=== PATIENT | male | born 1990 | race Caucasian/White ===

== ENCOUNTER 2020-03-30 08:39 | Outpatient (CLI) | payer OTHER, SELFPAY ==
--- NOTE | 2020-03-30 | XR_ITS ---
WS: [id number] PROCEDURE: XR chest 2V* [id number] CLINICAL INFORMATION: ACUTE BRONCHITIS COMPARISON: None. FINDINGS: Heart: Normal cardiac silhouette. Lungs: Lungs are clear. No consolidation or pleural fluid. No acute pulmonary infiltrates. Bones: Normal visualized bony structures. XR/XR chest 2V* [id number] IMPRESSION: Normal chest
== END 2020-03-30 08:40 | disposition home or self-care (01) ==
PROVIDERS: PCP Physician Assistant Medical; Visit Provider Nurse Practitioner Family
DX: J20.9 Acute bronchitis, unspecified (principal)
CPT/HCPCS: 71046

== ENCOUNTER → 2020-04-27 10:10 | Outpatient (BNVA) | payer OTHER, SELFPAY | PROVIDERS: PCP Physician Assistant Medical; Visit Provider Specialist | DX: Z20.828 Contact with and (suspected) exposure to other viral communicable diseases (principal) | CPT/HCPCS: 87635 ==

== ENCOUNTER 2020-05-01 08:59 | Outpatient (CLI) | payer OTHER, SELFPAY ==
--- NOTE | 2020-05-01 13:02 | PFTS_ITS ---
Date of Study:05/01/20 Date of Dictation: MECHANICS: Forced vital capacity (FVC) is increased. Forced expiratory volume in one second (FEV1) is increased. FEV1/FVC is normal. FLOW VOLUME LOOP: Normal. LUNG VOLUMES: Not measured DIFFUSING CAPACITY FOR CARBON MONOXIDE: Not measured INTERPRETATION: The pulmonary function tests are normal. The forced vital capacity and FEV1 are higher than normal range. Lung volumes and DLCO were not measured. MTDD
== END 2020-05-01 09:00 | disposition home or self-care (01) ==
LOC: RT 09:01
PROVIDERS: PCP Physician Assistant Medical; Visit Provider Specialist
DX: J37.0 Chronic laryngitis (principal); R05 Cough
CPT/HCPCS: 94010

== ENCOUNTER → 2021-05-21 09:21 | Outpatient (BNVA) | payer OTHER, SELFPAY | PROVIDERS: PCP Physician Assistant Medical; Visit Provider Nurse Practitioner Family | DX: R53.83 Other fatigue (principal); I10 Essential (primary) hypertension | CPT/HCPCS: 80053; 84443 ==

== ENCOUNTER 2021-06-26 20:00 | Outpatient (CLI) | payer OTHER, SELFPAY | END 2021-06-26 20:01 | disposition home or self-care (01) | LOC: SLEEP 06-27 06:58 | PROVIDERS: PCP Nurse Practitioner Family; Visit Provider Nurse Practitioner Family | DX: G47.30 Sleep apnea, unspecified (principal) | CPT/HCPCS: 95810 ==

== ENCOUNTER → 2021-10-22 09:41 | Outpatient (BNVA) | payer OTHER, SELFPAY | PROVIDERS: PCP Nurse Practitioner Family; Visit Provider Nurse Practitioner Family | DX: I10 Essential (primary) hypertension (principal); F41.9 Anxiety disorder, unspecified | CPT/HCPCS: 80053; 80061 ==

== ENCOUNTER → 2022-01-21 15:57 | Outpatient (BNVA) | payer OTHER, SELFPAY | PROVIDERS: PCP Nurse Practitioner Family; Visit Provider Nurse Practitioner Family | DX: L24.A9 Irritant contact dermatitis due friction or contact with other specified body fluids (principal); L03.90 Cellulitis, unspecified | CPT/HCPCS: 87070; 87075; 87205 ==

== ENCOUNTER → 2022-02-27 10:28 | Outpatient (BNVA) | payer OTHER, SELFPAY | PROVIDERS: PCP Nurse Practitioner Family; Visit Provider Nurse Practitioner Family | DX: J02.0 Streptococcal pharyngitis (principal) | CPT/HCPCS: 87880 ==

== ENCOUNTER → 2022-11-28 10:15 | Outpatient (BNVA) | payer OTHER, SELFPAY | PROVIDERS: PCP Nurse Practitioner Family; Visit Provider Nurse Practitioner Family | DX: I10 Essential (primary) hypertension (principal); F41.9 Anxiety disorder, unspecified | CPT/HCPCS: 80053; 80061 ==

== ENCOUNTER 2022-12-23 18:09 | Emergency (ER) | payer OTHER, SELFPAY ==
[2022-12-23 18:14] VITALS: BP 154/95; PULSE 115; RESP 19; TEMP 36.6; O2SAT 97; BMI 34.9
--- NOTE | 2022-12-23 18:19 | W.ED.BACK ---
HPI - Back Pain/Injury General: Chief Complaint: Back Pain/Injury Stated Complaint: Back Pain Time Seen by Provider: 12/23/22 18:19 History of Present Illness: 42-year-old male patient comes in today with complaints of low back pain radiating down the right leg. Patient reports that he fell about 4 weeks ago in the garage and did not feel like he injured himself. Over the last week though patient has had increased pain in his low back radiating down his right leg. Patient saw a chiropractor last week with some improvement on Friday but then over the weekend patient was not able to get up out of bed due to increased pain and discomfort. Patient seeing a massage therapist on Friday with minimal to no relief, and then was seen in the emergency room at [place] and started on steroids and a muscle relaxer. Patient states that today he was able to get back to his chiropractor which seem to help with his mobility some and when he seen his chiropractor this afternoon they told him that he needed to go to the ER for further evaluation. Patient appears nontoxic. Patient appears in no acute distress. Patient denies any loss of bowel or bladder control. Patient reports no fevers. Review of Systems General: Reports: 10 or more systems reviewed and unremarkable except in HPI and below Musc: Reports: back pain PFSH ED PFSH: Medical History HTN (hypertension) Family History Other Cancer Social History Smoking and tobacco status: never smoked Second hand smoke exposure: Yes Smoking risk assessment/counseling performed?: No Alcohol intake: current Alcohol intake frequency: holidays/special occasions only Counseling given: No Substance/Drug Use: never Desire information about substance/drug rehabilitation?: No Counseling given: No Adopted: No Lives independently: Yes Household members: spouse Marital status: Current occupational status: employed Current occupational exposures/hazards: No Do you think of yourself as: Straight/Heterosexual Current gender identity: Male Physical Exam Const: COMMON NORMALS: alert HENMT: COMMON NORMALS: normocephalic HEAD & SCALP: normocephalic Neck/C-Spine: COMMON NORMALS: full ROM CERVICAL SPINE: No Cervical spine tenderness Resp: COMMON NORMALS: normal respiratory effort Cardio: COMMON NORMALS: regular rate RATE: regular rate GI: COMMON NORMALS: non-tender Back/Pelvis: THORACIC SPINE/UPPER BACK: No thoracic spinal tenderness LUMBAR SPINE/LOWER BACK: No lumbar spinal tenderness, Yes paraspinal muscle tenderness Lumbar paraspinal muscle tenderness: right and Yes straight leg raise positive right Straight leg raise positive details right: at 50 degrees SACROILIAC JOINTS: Yes SI joint(s) abnormal SI joint details: tender to palpation (right) Neuro: SENSORIUM/ORIENTATION: Yes alert Skin: COMMON NORMALS: turgor normal GENERAL SKIN EXAM: turgor normal Course Vital Signs: Vital signs: Vital Signs Temperature 97.9 F 12/23/22 18:14 Pulse Rate 66 12/23/22 18:38 Respiratory Rate 16 12/23/22 18:38 Blood Pressure 164/84 12/23/22 18:38 Pulse Oximetry 98 12/23/22 18:38 Oxygen Delivery Me thod Room Air 12/23/22 18:38 MDM - Back Pain/Injury Medical Decision Making 32-year-old male patient comes in today with injury to the low back. Patient reports injury about 4 weeks ago. Since then patient has had increasing pain and discomfort to the right lower back rating down his leg. Vital signs are normal except for some elevation in blood pressure and pulse. Differential diagnosis includes but not limited to intervertebral disc disease, facet arthropathy, lumbar compression fracture, spondylolisthesis, lumbar radiculopathy. CT of the lumbar spine showed no acute findings. Reviewed exam with patient with recommendations for treatment and follow-up. Recommended gentle stretching and range of motion exercises. Recommend Tylenol and ibuprofen for pain. Recommend follow-up with primary care for further instructions. Patient reported understanding of care plan and need for follow-up or return to the ER. Labs Radiology Impressions Lumbar Spine CT 12/23/22 18:25 IMPRESSION: No acute findings. All radiology interpretation(s) finalized by discharge Discharge Plan Discharge Patient Disposition: Home Clinical Impression: Low back pain Qualifiers: Chronicity: acute Back pain laterality: right Sciatica presence: with sciatica Sciatica laterality: sciatica of right side Qualified Code(s): M54.41 - Lumbago with sciatica, right side Condition: Stable Prescriptions: No Action fluoxetine [Prozac] 20 mg capsule 20 mg PO DAILY Qty: 90 1RF amlodipine 10 mg tablet 10 mg PO DAILY Qty: 90 1RF Discharge Orders: Discharge ED (Routine); Ordered 12/23/22 Ordered By: Elieser Flores Referrals: Lani Browning FNP [Primary Care Provider] - Discharge Diet: Usual diet Discharge Activity: Increase activity as tolerated Patient Instructions: Acute Low Back Pain (ED) Activity Restrictions/Additional Instructions: Try to maintain activity is much as possible. Gentle stretching and range of motion exercises. Use acetaminophen and/or ibuprofen as needed for pain. Use mentholated muscle rubs for further pain relief. Drink plenty of water with medications. Follow-up with primary care for further instructions. Return to ED for new concerns or worsening symptoms such as fevers greater than 100.4, or loss of bowel or bladder control. Coding Level of Care Code ED Advance Scout for Ofelia Verma
--- NOTE | 2022-12-23 18:25 | CTR_ITS ---
PROCEDURE INFORMATION: Exam: CT Lumbar Spine Without Contrast Exam date and time: 12/23/2022 6:38 PM Age: 32 years old Clinical indication: Pain and injury or trauma; Fall; Blunt trauma (contusions or hematomas); Low back pain; Additional info: Fall injury, lumbar radiculopathy TECHNIQUE: Imaging protocol: Computed tomography of the lumbar spine without contrast. Radiation optimization: All CT scans at this facility use at least one of these dose optimization techniques: automated exposure control; mA and/or kV adjustment per patient size (includes targeted exams where dose is matched to clinical indication); or iterative reconstruction. REPORTING DATA: Count of CT and Cardiac NM exams in prior 12 months: This patient has received 0 known CTs and 0 known cardiac nuclear medicine studies in the 12 months prior to the current study. COMPARISON: No relevant prior studies available. RADIATION DOSE METRICS: Total DLP (mGy-cm): 920 FINDINGS: Bones/joints: No acute fracture. Normal alignment. No significant disc bulge or herniation. No severe spinal canal stenosis. No significant neural foraminal narrowing. Soft tissues: Unremarkable. CT/CT lumbar spine wo con* [id number] IMPRESSION: No acute findings.
[2022-12-23 18:38] VITALS: BP 164/84; PULSE 66; RESP 16; O2SAT 98
== END 2022-12-23 19:39 | disposition home or self-care (01) ==
PROVIDERS: Emergency Provider Nurse Practitioner Family; PCP Nurse Practitioner Family
DX: M54.41 Lumbago with sciatica, right side (principal); I10 Essential (primary) hypertension; Z77.22 Contact with and (suspected) exposure to environmental tobacco smoke (acute) (chronic)
CPT/HCPCS: 72131; 99284

== ENCOUNTER 2022-12-27 15:51 | Outpatient (CLI) | payer OTHER, SELFPAY ==
--- NOTE | 2022-12-27 16:00 | XR_ITS ---
WS: [id number] EXAMINATION: XR hip RT 2-3V wo/w pel* [id number] REASON FOR EXAM: M25.551 - Pain in right hip COMPARISON: None available. ORDER DATE: 12/27/2022 4:13 PM TECHNIQUE: Frontal internal/external rotation views of the right hip were obtained. X-RAY FINDINGS: There are no fractures or dislocations. Normal motion with internal/external rotation is present. No degenerative changes. IMPRESSION: 1. No fractures or dislocations of the right hip. 2. Normal motion with internal/external rotation.
--- NOTE | 2022-12-27 16:00 | XR_ITS ---
WS: [id number] EXAMINATION: XR lumbar spine 2-3V* [id number] L-SPINE : 3 views REASON FOR EXAM: M54.50 - Low back pain, unspecified COMPARISON: None available. ORDER DATE: 12/27/2022 4:13 PM FINDINGS: The lumbar vertebral bodies and the disc spaces are normal in width. In the lumbar vertebra, there i s no evidence of compression deformities or spondylolisthesis. IMPRESSION: UNREMARKABLE LUMBAR SPINE STUDY
== END 2022-12-27 15:52 | disposition home or self-care (01) ==
PROVIDERS: PCP Nurse Practitioner Family; Visit Provider Nurse Practitioner Family
DX: M25.551 Pain in right hip (principal); M54.50 Low back pain, unspecified
CPT/HCPCS: 72100; 73502

== ENCOUNTER 2023-01-03 06:36 | Outpatient (CLI) | payer OTHER, SELFPAY ==
--- NOTE | 2023-01-03 07:15 | MR_ITS ---
WS: [id number] MRI LUMBAR SPINE NONCONTRAST TECHNIQUE: Sagittal T1, T2 and STIR imaging. Axial T1 and T2 imaging. CLINICAL INFORMATION: COMPARISON: CT 12/23/22 FINDINGS: Mild lumbar curve. No acute compression. Disc bulging worse at L4-L5 and L5-S1. L1-L2: Normal. L2-L3: Normal. L3-L4: No significant disc bulging. Mild facet arthropathy. Spinal canal and foramen are patent. L4-L5: RIGHT paracentral disc osteophyte protrusion with slight inferior migration of disc material. This impinges the RIGHT subarticular recess and traversing RIGHT L5 nerve root. Mild RIGHT foraminal narrowing. LEFT foramen is patent. Mild facet arthropathy. L5-S1: Tiny shallow central protrusion. Slight contact of the S1 nerve roots. Mild facet arthropathy. Spinal canal and foramen are patent. Visualized pelvic bony structures: Normal. Paravertebral soft tissues: Normal. Adrenal glands are normal. IMPRESSION: 1. Mild lumbar curve. No acute compression. No high-grade central canal stenosis. 2. RIGHT subarticular disc osteophyte protrusion L4-5 impinges the RIGHT subarticular recess and tra versing RIGHT L5 nerve root. Slight inferior migration of disc material into the subarticular recess. Mild RIGHT L4-5 foraminal narrowing. 3. Tiny shallow central protrusion L5-S1 slightly encroaches on the traversing S1 nerve roots. 4. Mild facet arthropathy L4-L5 and L5-S1. 5. A few small disc protrusions in the cervical spine at C5-C6 and C6-C7. 6. Small thoracic spine protrusion at RIGHT T9-T10
== END 2023-01-03 06:37 | disposition home or self-care (01) ==
PROVIDERS: PCP Nurse Practitioner Family; Visit Provider Nurse Practitioner Family
DX: M48.061 Spinal stenosis, lumbar region without neurogenic claudication (principal); M25.78 Osteophyte, vertebrae; M47.817 Spondylosis without myelopathy or radiculopathy, lumbosacral region; M51.26 Other intervertebral disc displacement, lumbar region; M50.222 Other cervical disc displacement at C5-C6 level; M51.24 Other intervertebral disc displacement, thoracic region
CPT/HCPCS: 72148

== ENCOUNTER → 2024-07-01 09:13 | Outpatient (BNVA) | payer OTHER, SELFPAY | PROVIDERS: PCP Nurse Practitioner Family; Visit Provider Nurse Practitioner Family | DX: R51.9 Headache, unspecified (principal); R53.83 Other fatigue; E78.5 Hyperlipidemia, unspecified; I10 Essential (primary) hypertension | CPT/HCPCS: 80053; 80061; 84439; 84443; 85025; 85651; 86140 ==

== ENCOUNTER 2024-07-20 09:08 | Outpatient (CLI) | payer OTHER, SELFPAY ==
--- NOTE | 2024-07-20 09:19 | XRR_ITS ---
PROCEDURE INFORMATION: Exam: XR Cervical Spine Exam date and time: 07/20/2024 9:42 AM Age: 33 years old Clinical indication: Cervicalgia; Neck pain and chronic headaches x 3 mo, no known injury; Additional info: M54.2 - cervicalgia TECHNIQUE: Imaging protocol: Radiologic exam of the cervical spine. Views: 2 or 3 views. COMPARISON: CT head wo con* [id number] 07/20/2024 9:27 AM FINDINGS: Bones/joints: Normal. No acute fracture. Normal alignment. No significant degenerative disc disease appreciated by plain radiographs. Soft tissues: Unremarkable. XR/XR cervical spine 3V* [id number] IMPRESSION: No acute findings.
--- NOTE | 2024-07-20 10:00 | CT_ITS ---
WS: [id number] CT HEAD NONCONTRAST HISTORY: R51.9 - Headache, unspecified TECHNIQUE: Contiguous axial imaging performed through the brain. Bone and soft tissue windows. Sagittal and coronal reformats reviewed. All CT scans at [facility] use at least one of these dose optimization techniques: automated exposure control; mA and/or kV adjustment per patient size (includes targeted exams where dose is matched to clinical indication); or iterative reconstruction. DLP: 1077.70 mGy.cm COMPARISON: None available. No acute intracranial hemorrhage, midline shift or mass effect. No atrophy or prior infarcts or herniation. Perivascular space versus tiny lacunar infarct in the LEFT frontal lobe. Posterior fossa is negative. Ventricles: Normal size with no hydrocephalus. Paranasal sinuses: As visualized are clear. Mastoid air cells: Well pneumatized. Calvarium and scalp: Calvarium is intact. There is a calcified scalp nodule over the LEFT frontal bone measuring 7 mm. Probably related to a sebaceous cyst. CT/CT head wo con* [id number] IMPRESSION: 1. No acute intracranial hemorrhage or edema. 2. Negative posterior fossa.
== END 2024-07-20 09:09 | disposition home or self-care (01) ==
LOC: RAD 09:15
PROVIDERS: PCP Nurse Practitioner Family; Visit Provider Nurse Practitioner Family
DX: M54.2 Cervicalgia (principal); R51.9 Headache, unspecified; Z84.89 Family history of other specified conditions; R93.0 Abnormal findings on diagnostic imaging of skull and head, not elsewhere classified
CPT/HCPCS: 70450; 72040

== ENCOUNTER 2024-08-19 09:01 | Outpatient (CLI) | payer OTHER, SELFPAY ==
--- NOTE | 2024-08-19 09:30 | MR_ITS ---
WS: [id number] MRI HEAD WITHOUT CONTRAST TECHNIQUE: Sagittal T1, T2 axial, T2 axial FLAIR, axial and coronal T1 images, axial susceptibility weighted imaging, axial diffusion weighted images, and coronal T2 images were obtained. CLINICAL INFORMATION: G44.52 - New daily persistent headache (NDPH) COMPARISON: None. FINDINGS: No evidence of restricted diffusion to suggest acute ischemia. Ventricular system and basilar cisterns are patent. No hydrocephalus. Normal posterior fossa. Normal vascular flow voids at the skull base. No extra-axial fluid collections. No evidence of mass or mass effect. Paranasal sinuses and mastoid air cells are well aerated. No hemosiderin on the susceptibility weighted images. Normal optic chiasm and pituitary infundibulum. MR/MR head wo con* [id number] IMPRESSION: 1. No evidence of restricted diffusion to suggest acute ischemia. 2. No suspicious intracranial signal normalities. 3. No hemosiderin on susceptibility-weighted images. 4. No other acute findings.
== END 2024-08-19 09:02 | disposition home or self-care (01) ==
PROVIDERS: PCP Nurse Practitioner Family; Visit Provider Nurse Practitioner Family
DX: G44.52 New daily persistent headache (NDPH) (principal)
CPT/HCPCS: 70551

== ENCOUNTER 2024-09-07 06:34 | Outpatient (CLI) | payer OTHER, SELFPAY ==
--- NOTE | 2024-09-07 07:15 | MR_ITS ---
WS: [id number] MRI CERVICAL SPINE NONCONTRAST HISTORY: M54.2 - Cervicalgia COMPARISON: None available. Technique: Multiplanar, multisequence noncontrast imaging of the cervical spine. Normal cervical alignment with no compression fracture or significant disc space narrowing. Signal within the cervical cord is normal. Visualized posterior fossa is unremarkable. Craniocervical junction, C1 and C2 relationship, odontoid process and soft tissues are normal. C2-C3: LEFT foraminal osteophyte causing mild LEFT foraminal stenosis. C3-C4: LEFT foraminal osteophytes encroaching upon the nerve roots. There is displacement of the nerve roots posteriorly. This is predominantly due to osteophyte disease resulting in moderate LEFT foraminal stenosis. Very mild deformity of the LEFT lateral thecal sac. C4-C5: Minimal central disc protrusion. No stenosis. Mild facet arthritis. C5-C6: Diffuse annular disc bulging with mild osteophytic ridging. RIGHT paracentral disc protrusion. Mild bilateral facet arthritis. Mild central stenosis. C6-C7: Mild annular disc bulging with osteophytic ridging and facet arthritis. Small central disc protrusion effacing ventral CSF. Small bilateral foraminal osteophytes, RIGHT greater than LEFT. Mild central and RIGHT foraminal stenosis. C7-T1: Tiny central disc protrusion. Bilateral foraminal nerve root sleeve diverticula. No stenosis. Increased T2 signal in the RIGHT visualized parotid gland. Small portion of parotid gland included demonstrates mild wall thickening. MR/MR cervical spin wo con* [id number] IMPRESSION: 1. C2-3 and C3-4: LEFT foraminal osteophytes with mild LEFT foraminal stenosis . 2. C5-6: RIGHT paracentral disc protrusion with disc bulging and osteophytic r idging. Mild central stenosis. 3. C6-7: Small central disc protrusion effacing CSF with bilateral foraminal o steophytes, RIGHT greater than LEFT. Mild central and RIGHT foraminal stenosis. 4. Small central disc protrusions at C4-5 and C7-T1. 5. There is mildly increased signal in the RIGHT parotid gland. Only a small p ortion of the parotid gland is included but the signal is more increased than t ypically noted. Consider follow-up neck CT with IV contrast. Only a small porti on of the parotid duct is visualized but the wall appears thickened and promine nt.
== END 2024-09-07 06:35 | disposition home or self-care (01) ==
PROVIDERS: PCP Nurse Practitioner Family; Visit Provider Nurse Practitioner Family
DX: M50.322 Other cervical disc degeneration at C5-C6 level (principal); M48.02 Spinal stenosis, cervical region; M50.221 Other cervical disc displacement at C4-C5 level; M50.222 Other cervical disc displacement at C5-C6 level; M50.223 Other cervical disc displacement at C6-C7 level; M50.23 Other cervical disc displacement, cervicothoracic region; M25.78 Osteophyte, vertebrae
CPT/HCPCS: 72141

== ENCOUNTER 2024-10-18 12:24 | Outpatient (CLI) | payer OTHER, SELFPAY ==
--- NOTE | 2024-10-18 12:30 | CT_ITS ---
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 Sagittal and coronal reformats are also submitted. All CT scans at [facility] use at least one of these dose optimization techniques: automated exposure control; mA and/or kV adjustment per patient size (includes targeted exams where dose is matched to clinical indication); or iterative reconstruction. CONTRAST: CONTRAST: Omnipaque 350; 100 mL IV. DLP: 249.83 mGy.cm COMPARISON: MRI cervical spine 09/07/2024 The parotid glands are symmetric in appearance by CT imaging. The RIGHT parotid may be slightly greater in size than the LEFT but this is normal variation. No stones within the parotid ducts. Submandibular glands and thyroid gland are also normal. No parotid gland mass. Nasopharynx, oropharynx, hypopharynx and larynx are unremarkable. No soft tissue masses or abnormal enhancement. Torus tubarius and fossa of Rosenmuller and parapharyngeal fat are normal. No significant lymphadenopathy is identified. Benign level 2 lymph nodes. Thyroid gland and salivary glands are normally enhancing with no masses. No osseous abnormalities. Visualized portions of the skull base demonstrate no abnormalities. Orbits and globes are within normal limits. No soft tissue masses. Visualized paranasal sinuses and mastoid air cells are normal. Lung apices are clear. CT/CT neck w con* [id number] IMPRESSION: 1. RIGHT parotid gland is normal by CT. No mass or abnormal enhancement within either parotid gland. Changes on the recent MRI or probably artifactual. 2. No parotid duct enlargement or inflammation. 3. No cervical chain lymphadenopathy.
[2024-10-18] MEDS: iohexol 350 mg/mL 500 mL Btl (per mL) IV (12:43)
== END 2024-10-18 12:25 | disposition home or self-care (01) ==
LOC: RAD 12:27
PROVIDERS: PCP Nurse Practitioner Family; Visit Provider Nurse Practitioner Family
DX: K11.1 Hypertrophy of salivary gland (principal)
CPT/HCPCS: 70491